=== PATIENT | female | born 1970 | race Caucasian/White ===

== ENCOUNTER 2024-08-06 14:26 | Inpatient (IN) | payer MEDICAID ==
[~2024-08-06] VITALS: Ht 152.4 cm; Wt 91.3 kg
[~2024-08-06 14:26] MED LIST: AMOX875T4 PO; IBUP-1456 PO; TOBR0.3S OP
--- NOTE | 2024-08-06 14:37 | ED.PDOC ---
HPI Comments 53 y/o , with PMHx of HTN and HLD presents to the ED for CC of palpitations. Patient states, that she has been experiencing palpitations onset, x3days ago. Patient reports, associated symptoms of fatigue, sleeping up to 19 hours within a day which has now been consistent for months. Patient endorses, seeing her PCP and being newly diagnosed with diabetes. Upon arrival to the ED, patient's blood sugar read at 352. Patient denies chest pain, shortness of breath, fever, chil ls, or nausea. No other symptoms or modifying factors present at this time. Time Seen by MD: 14:45 Reviewed Notes: Nurses Notes, Medications, Allergies Allergies: Coded Allergies: Ampicillin (Verified Allergy, Unknown, 03/25/22) Sulfa Antibiotics (Verified Allergy, Unknown, 03/25/22) Home Meds Active Scripts Ibuprofen (Ibuprofen) 800 Mg Tab, 1 TAB PO TID, #30 TAB Prov:АННА GARDNER 03/25/22 Tobramycin Sulfate (TOBREX) 0.3 % Henny, 0.3 % OP QID, #5 ML Prov:АННА GARDNER 03/25/22 Amoxicillin & Pot Clavulanate (Amoxicillin/Potassium Cla) 875 Mg Tab, 1 TAB PO BID, #20 TAB Prov:АННА GARDNER 03/25/22 Information Source: Patient Mode of Arrival: Wheelchair Severity: Moderate Timing: Months Duration: Since onset Prehospital treatment: None Onset: At Rest Cardiac Risk Factors: Diabetes PE Risk Factors: None History of: None Modifying Factors: Nothing Associated Signs and Symptoms: Palpitations Past Medical History PAST MEDICAL HISTORY: Arthritis, DM, HTN Surgical History: Denies all surgeries LABEL REWINDER History: No Pertinent LABEL REWINDER History Family History Family History: Reviewed,noncontributory to illness Social History Smoker: Non-Smoker Alcohol: Denies ETOH Use Drugs: Denies Drug Use Lives In: Home Constitutional: reports: fatigue, weakness; denies: chills, diaphoresis, fever, malaise, sweats, others EENTM: denies: blurred vision, double vision, ear bleeding, ear discharge, ear drainage, ear pain, ear ringing, eye pain, eye redness, hearing loss, mouth pain, mouth swelling, nasal discharge, nose bleeding, nose congestion, nose pain, photophobia, tearing, throat pain, throat swelling, voice changes, others Respiratory: denies: cough, hemoptysis, orthopnea, SOB at rest, shortness of breath, SOB with excertion, stridor, wheezing, others Cardiovascular: reports: palpitations; denies: chest pain, dizzy spells, diaphoresis, Dyspnea on exertion, edema, irregular heart beat, left arm pain, lightheadedness, PND, syncope, others Gastrointestinal: denies: abdomen distended, abdominal pain, blood streaked bowels, constipated, diarrhea, dysphagia, difficulty swallowing, hematemesis, melena, nausea, poor appetite, poor fluid intake, rectal bleeding, rectal pain, vomiting, others Genitourinary: denies: abnormal vagina bleeding, burning, dyspareunia, dysuria, flank pain, frequency, hematuria, incontinence, pain, , vagina discharge, urgency, others Neurological: reports: numbness; denies: dizziness, fainting, headache, left sided numbness, left sided weakness, paresthesia, pre-existing deficit, right sided numbness, right sided weakness, seizure, speech problems, tingling, tremors, weakness, others Musculoskeletal: denies: back pain, gout, joint pain, joint swelling, muscle pain, muscle stiffness, neck pain, others Integumetry: denies: bruises, change in color, change in hair/nails, dryness, laceration, lesions, lumps, rash, wounds, others Allergic/Immunocompromised: denies: Difficulty Healing, Frequent Infections, Hives, Itching, others Hematologic/Lymphatic: denies: anemia, blood clots, easy bleeding, easy bruising, swollen glands, others Endocrine: denies: excessive hunger, excessive sweating, excessive thirst, excessive urination, flushing, intolerance to cold, intolerance to heat, unexplained weight gain, unexplained weight loss, others Psychiatric: denies: anxiety, bipolar disorder, depression, hopeless, panic disorder, schizophrenia, sleepless, suicidal, others All Other Systems: Reviewed and Negative Physical Exam General Appearance: Moderate Distress HEENT: Normal ENT Inspection, Pharynx Normal, TMs Normal Neck: Full Range of Motion, Non-Tender, Normal, Normal Inspection Respiratory: Chest Non-Tender, Lungs Clear, No Accessory Muscle Use, No Respiratory Distress, Normal Breath Sounds Cardiovascular: No Edema, No JVD, No Murmur, No Gallop, Normal Peripheral Pulses, Regular Rate/Rhythm Breast Exam: Deferred Gastrointestinal: No Organomegaly, Non Tender, No Pulsatile Mass, Normal Bowel Sounds, Soft Genitalia: Deferred Pelvic: Deferred Rectal: Deferred Extremities: No calf tenderness, Normal capillary refill, Normal inspection, Normal range of motion, Non-tender, No pedal edema Musculoskeletal : Apperance: Normal Neurologic: Alert, car refinisher II-XII nml as Tested, No Motor Deficits, Normal Affect, Normal Mood, No Sensory Deficits Cerebellar Function: Normal Reflexes: Normal Skin: Dry, Normal Color, Warm Lymphatic: No Adenopathy Was a procedure done? Was a procedure done?: No CP Differential Dx Differential Diagnosis: Sinus Tachycardia X-Ray, Labs, Meds, VS Vital Signs Date Time Temp Pulse Resp B/P (MAP) Pulse Ox O2 Delivery O2 Flow Rate FiO2 08/06/24 16:19 99.3 95 18 155/77 (103) 96 99.3 08/06/24 14:34 106 08/06/24 14:26 98.2 100 18 169/85 (113) 96 98.2 Lab Test 08/06/24 15:20 08/06/24 14:39 08/06/24 14:34 Range/Units Troponin I High Sensitivity 4 3 L </=34 ng/L POC Glucose 315 H 70-106 mg/dl White Blood Count 9.2 4.4-10.8 10^3/uL Red Blood Count 5.26 H 4.0-5.20 10^6/uL Hemoglobin 15.8 12.2-16.2 g/dL Hematocrit 46.7 H 36.0-46.0 % Mean Corpuscular Volume 88.7 80.0-100.0 fL Mean Corpuscular Hemoglobin 30.1 28.0-32.0 pg Mean Corpuscular Hemoglobin Concent 33.9 32.0-36.0 g/dL Red Cell Distribution Width 12.9 11.8-14.3 % Platelet Count 215 140-450 10^3/uL Mean Platelet Volume 8.7 6.9-10.8 fL Neutrophils (%) (Auto) 46.4 37.0-80.0 % Lymphocytes (%) (Auto) 45.8 10.0-50.0 % Monocytes (%) (Auto) 6.1 0.0-12.0 % Eosinophils (%) (Auto) 1.0 0.0-7.0 % Basophils (%) (Auto) 0.7 0.0-2.0 % Neutrophils # (Auto) 4.3 1.6-8.6 10 ^3/uL Lymphocytes # (Auto) 4.2 0.4-5.4 10 ^3/uL Monocytes # (Auto) 0.6 0-1.3 10 ^3/uL Eosinophils # (Auto) 0.1 0-0.8 10 ^3/uL Basophils # (Auto) 0.1 0-0.2 10 ^3/uL Nucleated Red Blood Cells 0.0 % Sodium Level 139 136-145 mmol/L Potassium Level 4.4 3.5-5.1 mmol/L Chloride Level 105 98-107 mmol/L Carbon Dioxide Level 24 20-31 mmol/L Anion Gap 10 5-15 Blood Urea Nitrogen 14 9-23 mg/dL Creatinine 0.70 0.550-1.02 mg/dL Glomerular Filtration Rate Calc 102 >90 mL/min BUN/Creatinine Ratio 20.0 10.0-20.0 Serum Glucose 316 H 74-106 mg/dL Calcium Level 9.4 8.7-10.4 mg/dL Magnesium Level 1.8 1.6-2.6 mg/dL IV Hep-Lock was established The CBC is within normal limits The chemistry panel shows hyperglycemia at 318 The troponin level x2 is within normal range The patient is being admitted at this time We feel that the patient needs to be seen by the physics tutor The patient understands and agrees with the management. Images Reviewed?: Images reviewed and evaluated by me Time of 1ST Reevaluation: 15:15 Reevaluation 1ST: Unchanged Patient Education/Counseling: Diagnosis, Treatment, Prognosis Family Education/Counseling: No Family Present Departure 1 Departure Time of Disposition: 17:30 Impression: Primary Impression: Acute chest pain Additional Impression: Palpitations Disposition: ADMITTED INPATIENT Admit to: Tele Condition: Fair Critical Care Note Critical Care Time?: Yes (45 min-critical care time only) Stability Stability form required: Yes Unstable for transfer: Telemetry monitoring (Telemetry monitoring required), ED Physician Assesment (Clinical assesment) Heart Score Heart Score: Heart Score Response (Comments) Value History Moderate Suspicious 1 EKG Repolarization Disturb 1 Age 45-64 1 Risk Factors 1 or 2 risk factors 1 Troponin Normal limit 0 Total 4 I personally scribed for SANCHEZ ULRICH MD ([email or web address]) on 08/06/24 at 14:37. Electronically submitted by Eva Coffey ([email or web address]). I personally scribed for SANCHEZ ULRICH MD ([email or web address]) on 08/06/24 at 15:01. Electronically submitted by Eva Coffey ([email or web address]). I personally scribed for SANCHEZ ULRICH MD ([email or web address]) on 08/06/24 at 16:03. Electronically submitted by Eva Coffey ([facility]). SANCHEZ ULRICH MD August 06, 2024 14:37
[2024-08-06 15:16] LABS: Basophils # (auto) 0.1 10 ^3/uL (0-0.2); Basophils % (auto) 0.7 % (0.0-2.0); Eosinophils # (auto) 0.1 10 ^3/uL (0-0.8); Hematocrit 46.7 % (36.0-46.0); Hemoglobin 15.8 g/dL (12.2-16.2); Lymphocytes # (auto) 4.2 10 ^3/uL (0.4-5.4); Lymphocytes % (auto) 45.8 % (10.0-50.0); Mean Corpuscular Hemoglobin 30.1 pg (28.0-32.0); Mean Corpuscular Hgb Conc. 33.9 g/dL (32.0-36.0); Mean Corpuscular Volume 88.7 fL (80.0-100.0); Monocytes # (auto) 0.6 10 ^3/uL (0-1.3); Monocytes % (auto) 6.1 % (0.0-12.0); Neutrophils # (auto) 4.3 10 ^3/uL (1.6-8.6); Neutrophils % (auto) 46.4 % (37.0-80.0); Platelet Count (auto) 215 10^3/uL (140-450); Red Blood Cells 5.26 10^6/uL (4.0-5.20); Red Cell Distribution Width 12.9 % (11.8-14.3); White Blood Cell 9.2 10^3/uL (4.4-10.8)
[2024-08-06 15:27] LABS: Chloride 105 mmol/L (98-107); Potassium 4.4 mmol/L (3.5-5.1); Sodium 139 mmol/L (136-145)
[2024-08-06 15:28] LABS: Anion Gap 10 (5-15); Calcium 9.4 mg/dL (8.7-10.4); Carbon Dioxide 24 mmol/L (20-31)
[2024-08-06 15:33] LABS: Blood Urea Nitrogen 14 mg/dL (9-23)
[2024-08-06 15:34] LABS: Glucose 316 mg/dL (74-106); Magnesium 1.8 mg/dL (1.6-2.6)
--- NOTE | 2024-08-06 16:27 | DVH ---
CHEST RADIOGRAPH Indication: cp Technique: Single frontal view of the chest was obtained Comparison: None FINDINGS: Lines and Tubes: None Lungs: No focal consolidation. Mild interstitial prominence most likely from overlying structures. Pleura: No effusion. No pneumothorax. Cardiomediastinal contours: Unremarkable Bones: No acute osseous abnormality. IMPRESSION: No evidence of acute cardiopulmonary disease
[2024-08-06] MEDS ORDERED: DEXTROSE (50%) 50ML SYRG IV PRN (21:00)
[2024-08-06 21:09] LABS: Urine Bacteria FEW /hpf (None Seen); Urine Blood TRACE /uL (Negative); Urine Clarity Clear (Clear); Urine Color Yellow (Yellow); Urine Protein, UAD Negative (Negative); Urine Specific Gravity 1.027 (1.001-1.035); Urine Squamous Epithelial Cell FEW /hpf (<5); Urine Urobilinogen Normal (Negative); Urine WBC 9 /HPF (0-5); Urine pH 5.5 (5.0-9.0)
[2024-08-06 21:27] LABS: Amphetamine Screen, Urine Neg (NEGATIVE); Barbiturate Scree,Urine Neg (NEGATIVE); Benzodiazephine Screen, Urine Neg (NEGATIVE); Cannabinoid Screen, Urine Pos (NEGATIVE); Cocaine Screen, Urine Neg (NEGATIVE); Opiate Scree,Urine Neg (NEGATIVE); Phencyclidine Screen, Urine Neg (NEGATIVE)
--- NOTE | 2024-08-06 21:45 | DVHHP2 ---
History of Present Illness Reason for Visit: hyperglycemia History of Present Illness 53-year-old female with a history of hypertension, hyperlipidemia, and recent diagnosis of diabetes mellitus, presenting to the ED with 3 days of palpitations. She reports associated symptoms of fatigue and hypersomnolence, sleeping up to 19 hours per day. No chest pain, shortness of breath, fever, chills, or nausea. She said that she was planning to see her PCP due to recent hba1c of 10.8. On arrival, her POC glucose was 352 mg/dL. Allergies: Ampicillin Sulfa antibiotics Past Medical History: Hypertension Hyperlipidemia Arthritis Diabetes mellitus, newly diagnosed Past Surgical History: Denies any surgeries Gynecologic History: No pertinent history Family History: Noncontributory Social History: Denies smoking, alcohol CBD use ROS: Positive for palpitations, fatigue, and excessive sleepiness. Denies fever, chest pain, dyspnea, GI or symptoms otherwise. EKG: NSR Review of Systems Allergies: Coded Allergies: Ampicillin (Verified Allergy, Unknown, 03/25/22) Sulfa Antibiotics (Verified Allergy, Unknown, 03/25/22) Medications Current Medications Medications Dose Ordered Sig/Shelia Route Start Time Stop Time Status Last Admin Dose Admin Acetaminophen 650 mg Q6HP PRN PO 08/06/24 21:00 Enoxaparin Sodium 40 mg DAILY SC 08/07/24 10:00 Losartan Potassium 50 mg DAILY PO 08/07/24 10:00 Hydrochlorothiazide 25 mg DAILY PO 08/07/24 10:00 Diagnostic Test (Pha) 1 strip ACHS 08/06/24 22:00 Insulin Human Regular ACHS SC 08/06/24 22:00 Dextrose 50 ml UD PRN IV 08/06/24 21:00 Exam Vital Signs Vital Signs Date Time Temp Pulse Resp B/P (MAP) Pulse Ox O2 Delivery O2 Flow Rate FiO2 08/06/24 18:25 98.8 97 16 163/84 (110) 96 98.8 Exam General: Alert and oriented x3, NAD HEENT: Normocephalic, atraumatic Neck: No JVD, no lymphadenopathy Lungs: Clear to auscultation Cardiovascular: RRR, no murmurs Abdomen: Soft, non-tender, no organomegaly Extremities: No edema Neuro: No focal deficits Skin: Intact, no rashes Labs/Xrays Labs Test 08/06/24 15:20 08/06/24 14:43 08/06/24 14:39 08/06/24 14:34 Range/Units Troponin I High Sensitivity 4 </=34 ng/L Urine Color Yellow Yellow Urine Clarity Clear Clear Urine pH 5.5 5.0-9.0 Urine Specific [place] 1.027 1.001-1.035 Urine Protein Negative Negative Urine Ketones Negative Negative Urine Blood Trace H Negative /uL Urine Nitrite Negative Negative Urine Bilirubin Negative Negative Urine Urobilinogen Normal Negative mg/dL Urine Leukocyte Esterase 1+ Negative /uL Urine RBC 5 0 - 4 /hpf Urine Microscopic WBC 9 H 0-5 /HPF Urine Squamous Epithelial Cells Few <5 /hpf Urine Bacteria Few H None Seen /hpf Urine Glucose 4+ H Normal mg/dL Urine Opiates Screen Neg NEGATIVE Urine Fentanyl Screen Neg NEGATIVE Urine Barbiturates Screen Neg NEGATIVE Urine Phencyclidine Screen Neg NEGATIVE Urine Amphetamines Screen Neg NEGATIVE Urine Benzodiazepines Screen Neg NEGATIVE Urine Cocaine Screen Neg NEGATIVE Urine Cannabinoids Screen Pos NEGATIVE POC Glucose 315 H 70-106 mg/dl White Blood Count 9.2 4.4-10.8 10^3/uL Red Blood Count 5.26 H 4.0-5.20 10^6/uL Hemoglobin 15.8 12.2-16.2 g/dL Hematocrit 46.7 H 36.0-46.0 % Mean Corpuscular Volume 88.7 80.0-100.0 fL Mean Corpuscular Hemoglobin 30.1 28.0-32.0 pg Mean Corpuscular Hemoglobin Concent 33.9 32.0-36.0 g/dL Red Cell Distribution Width 12.9 11.8-14.3 % Platelet Count 215 140-450 10^3/uL Mean Platelet Volume 8.7 6.9-10.8 fL Neutrophils (%) (Auto) 46.4 37.0-80.0 % Lymphocytes (%) (Auto) 45.8 10.0-50.0 % Monocytes (%) (Auto) 6.1 0.0-12.0 % Eosinophils (%) (Auto) 1.0 0.0-7.0 % Basophils (%) (Auto) 0.7 0.0-2.0 % Neutrophils # (Auto) 4.3 1.6-8.6 10 ^3/uL Lymphocytes # (Auto) 4.2 0.4-5.4 10 ^3/uL Monocytes # (Auto) 0.6 0-1.3 10 ^3/uL Eosinophils # (Auto) 0.1 0-0.8 10 ^3/uL Basophils # (Auto) 0.1 0-0.2 10 ^3/uL Nucleated Red Blood Cells 0.0 % Sodium Level 139 136-145 mmol/L Potassium Level 4.4 3.5-5.1 mmol/L Chloride Level 105 98-107 mmol/L Carbon Dioxide Level 24 20-31 mmol/L Anion Gap 10 5-15 Blood Urea Nitrogen 14 9-23 mg/dL Creatinine 0.70 0.550-1.02 mg/dL Glomerular Filtration Rate Calc 102 >90 mL/min BUN/Creatinine Ratio 20.0 10.0-20.0 Serum Glucose 316 H 74-106 mg/dL Calcium Level 9.4 8.7-10.4 mg/dL Magnesium Level 1.8 1.6-2.6 mg/dL Assessment/Plan Assessment/Plan #Uncontrolled newly diagnosed DM type 2 #Hypertensive crisis #UTI? #CBD use Admit Med/surg Diabetic diet Mild ISS Losartan 50 mg PO HCTZ 25 mg PO Ceftriaxone IV Normal head CT Nifedipine PO once Case discussed with Dr Olguin Full code Plan discussed with: Patient, Other (rn) My Orders Orders - LUZ SHIRLEY Procedure Category Date Status Time Admit ADMIT 08/06/24 Transmitted 20:54 Code Status CODE 08/06/24 Transmitted 20:54 Vital Signs MOUNA 08/06/24 In Process 20:54 Review Orders With MOUNA 08/06/24 In Process Adm. 20:54 Consistent DIET 08/07/24 Transmitted Carb(Ccho)Diabetes Breakfast Acetaminophen Tablet PHA 08/06/24 In Process (Tylenol Tablet) 21:00 Notify Of Changes MOUNA 08/06/24 In Process From Base 20:54 Advance Directive MOUNA 08/06/24 In Process 20:54 Patient Condition ORDERS 08/06/24 Transmitted 20:54 Allergies MOUNA 08/06/24 In Process 20:54 Enoxaparin Sodium PHA 08/07/24 In Process (Lovenox) 10:[address] 08/06/24 Taken 20:56 Losartan Tablet PHA 08/07/24 In Process (Cozaar Tablet) 10:00 Hydrochlorothiazide PHA 08/07/24 In Process Tablet (Hydrochlorot 10:00 Glucose Blood PHA 08/06/24 In Process (Accu-Chek Comfort 22:00 Insulin R (Human) PHA 08/06/24 In Process (Insulin R) 22:00 Dextrose 50% Syringe PHA 08/06/24 In Process 21:00 Date of Service: August 06, 2024 Billing Provider: KATRINA OLGUIN MD Common Visit Codes: 46671-[id number] INP/OBS CARE (HIGH) Secondary Visit Codes: 78789-[id number] CARE PLAN 30 MINUTES LUZ SHIRLEY RESIDENT August 06, 2024 21:45
--- NOTE | 2024-08-06 21:54 | DVH ---
CT BRAIN WITHOUT CONTRAST HISTORY: hypertensive urgency TECHNIQUE: Axial scans were obtained from the skull base through the vertex without contrast. Sagitta l and coronal reformats were generated. One or more of the following radiation dose reduction techniq ues were used for this examination: automated exposure control, adjustment of the mA and/or kV accord ing to patient size, use of iterative reconstruction technique. COMPARISON: None FINDINGS: No acute intracranial hemorrhage or evidence of large vessel territorial infarction identified at thi s time. No midline shift. The basilar cisterns are patent. Valentine-white differentiation appears relati vely preserved. The visualized paranasal sinuses and mastoid air cells are clear. No grossly displaced calvarial abno rmalities identified. IMPRESSION: No acute intracranial findings.
[2024-08-07] MEDS: cefTRIAXone 1GM/50ML D5W 50 ML IV SCH (01:15)
[2024-08-07] MEDS: ACCU-CHEK COMFORT CURVE STRIP VI SCH (01:15)
[2024-08-07] MEDS: InsuLIN REG 1unit/0.01ml Soln (100units/ml) SC SCH (01:15)
[2024-08-07 01:17] VITALS: PULSE 90; RESP 16; O2SAT 97
[2024-08-07] MEDS: NIFEdipine ER 30 MG TAB PO ONE (03:54)
[2024-08-07 06:48] LABS: Basophils # (auto) 0.1 10 ^3/uL (0-0.2); Basophils % (auto) 0.6 % (0.0-2.0); Eosinophils # (auto) 0.1 10 ^3/uL (0-0.8); Eosinophils % (auto) 1.1 % (0.0-7.0); Hematocrit 47.6 % (36.0-46.0); Hemoglobin 16.3 g/dL (12.2-16.2); Lymphocytes # (auto) 4.1 10 ^3/uL (0.4-5.4); Lymphocytes % (auto) 45.4 % (10.0-50.0); Mean Corpuscular Hemoglobin 30.1 pg (28.0-32.0); Mean Corpuscular Hgb Conc. 34.3 g/dL (32.0-36.0); Mean Corpuscular Volume 87.7 fL (80.0-100.0); Monocytes # (auto) 0.4 10 ^3/uL (0-1.3); Monocytes % (auto) 4.9 % (0.0-12.0); Neutrophils # (auto) 4.4 10 ^3/uL (1.6-8.6); Nucleated Red Blood Cells % 0.3 %; Platelet Count (auto) 242 10^3/uL (140-450); Red Blood Cells 5.43 10^6/uL (4.0-5.20); Red Cell Distribution Width 13.1 % (11.8-14.3); White Blood Cell 9.1 10^3/uL (4.4-10.8)
[2024-08-07 07:34] LABS: Alkaline Phosphatase 104 U/L (46-116); Calcium 9.6 mg/dL (8.7-10.4); Carbon Dioxide 23 mmol/L (20-31); Chloride 103 mmol/L (98-107)
[2024-08-07 07:35] LABS: Albumin 4.5 g/dL (3.2-4.8); Anion Gap 11 (5-15); Aspartate Aminotransferase 32 U/L (13-40); BUN/Creatinine Ratio 15.2 (10.0-20.0); Bilirubin, Total 0.7 mg/dL (0.2-1.0); Blood Urea Nitrogen 12 mg/dL (9-23); Sodium 137 mmol/L (136-145); Total Protein 7.3 g/dL (5.7-8.2)
[2024-08-07 07:39] LABS: Alanine Aminotransferase 58 U/L (7-40); Glucose 273 mg/dL (74-106)
[2024-08-07 08:30] LABS: Cholesterol 286 mg/dL (< 200); HDL Cholesterol 38 mg/dL (40-59); Triglycerides 553 mg/dL (< 150)
--- NOTE | 2024-08-07 08:57 | ECG ---
[facility] Test Date: 2024-08-06 Test Time: 14:34:41 Pat Name: YANA STILL Department: ER Room: 0298 Gender: F [employer]: YVROSE : 1970 Requested By: SANCHEZ ULRICH Order Number: [id number] Reading MD: Raymundo Lay Measurements Intervals [place] Rate: 106 P: 80 NV: 178 QRS: 0 QRSD: 86 T: 85 QT: 353 QTc: 469 Interpretive Statements Sinus tachycardia Right atrial enlargement Nonspecific T abnrm, anterolateral leads Baseline wander in lead(s) V6 Electronically Signed On 08-08-2024 12:46:26 PDT by Raymundo Lay Please click the below link to view image of tracing.
[2024-08-07] MEDS: LOSARTAN POTASSIUM 50 MG TAB PO SCH (11:28)
[2024-08-07] MEDS: ENOXAPARIN SOD 40 MG/0.4 ML SYRINGE SC SCH (11:29)
[2024-08-07] MEDS: hydroCHLOROthiazide 25 MG TAB PO SCH (11:29)
[2024-08-07] MEDS: ACETAMINOPHEN 325 MG TAB PO PRN (15:55)
--- NOTE | 2024-08-07 17:06 | DVHPNRES ---
Progress Note Date Seen: August 07, 2024 Resident Creating Document: MIMI RIVERA RESIDENT Has the PT tested + for MRSA If YES, has PT been informed?: No Medical Necessity Reason Pt with a Central, PICC or Fol: No Medical Necessity Reason History of Present Illness 53-year-old female with a history of hypertension, hyperlipidemia, and recent diagnosis of diabetes mellitus, presenting to the ED with 3 days of palpitations. She reports associated symptoms of fatigue and hypersomnolence, sleeping up to 19 hours per day. No chest pain, shortness of breath, fever, chills, or nausea. She said that she was planning to see her PCP due to recent hba1c of 10.8. On arrival, her POC glucose was 352 mg/dL. Allergies: Ampicillin, Sulfa antibiotics Past Medical History: Hypertension, Hyperlipidemia, Arthritis, Diabetes mellitus, newly diagnosed Past Surgical History: Denies any surgeries Gynecologic History: No pertinent history Family History:Noncontributory Social History: Lives at home, with children. Denies smoking, alcohol, but uses CBD Pn: 08/07/2024 Patient is a 53-year-old female with hypertension, hyperlipidemia and prediabetes comes to the clinic because of 1 polydipsia polyuria and hypersomnia. Patient, she has realize that this past couple of weeks she has been sleeping a lot. She will take her children to school sleep she would have a good night red but by the time she gets her children to screen back to sleep until she goes out big them and so she finds his a very exhausted. Patient also complained of constantly feeling dry in her mouth needing to always drink something to hydrate herself. She called her PCP did lab work and she found that she is diabetic. She came to the Ed to be evaluated. Blood sugar was 316 and A1c of 10.4. Head CT was negative No acute intracranial findings CXR evidence of acute cardiopulmonary disease. Urinalysis was positive for leukocyte esterase urine WBC and bacteria. Urine culture sent and patient is started treatment with ceftriaxone. Subjective Review of Systems Constitutional: Denies fever no chills, feeling of malaise, fatigues HEENT: Denies headache, ear pain, ear discharges, conjunctivitis, nasal discharge throat pain Cardiovascular: Denies chest pain, palpitation, orthopnea, PND, or pedal edema Respiratory: Denies shortness of breath, cough cough, sputum production, hemoptysis, GI: Denies abdominal pain, nausea, vomiting, diarrhea, hematemesis, hematochezia, polydipsia : Denies frequency, urgency, hematuria, polyuria Endocrine: Denies unintentional weight gain or weight loss, feeling of hot flashes, Sharif: Denies easy bruising, bleeding disorders, epistaxis Musculoskeletal: Denies joint pains, muscle aches Psych: No evidence of depression, christopher, suicidal ideation Objective vital signs Vital Sign Date Time Temp Pulse Resp B/P (MAP) Pulse Ox O2 Delivery O2 Flow Rate FiO2 08/07/24 11:29 158/80 08/07/24 11:26 97.9 95 15 97 97.9 08/07/24 09:04 Room Air* 0 21 medications Current Medications Medications Dose Ordered Sig/Shelia Route Start Time Stop Time Status Last Admin Dose Admin Acetaminophen 650 mg Q6HP PRN PO 08/06/24 21:00 08/07/24 15:55 650 MG Enoxaparin Sodium 40 mg DAILY SC 08/07/24 10:00 Losartan Potassium 50 mg DAILY PO 08/07/24 10:00 08/07/24 11:28 50 MG Hydrochlorothiazide 25 mg DAILY PO 08/07/24 10:00 08/07/24 11:29 25 MG Diagnostic Test (Pha) 1 strip ACHS 08/06/24 22:00 08/07/24 11:41 1 STRIP Insulin Human Regular ACHS SC 08/06/24 22:00 08/07/24 11:51 6 UNITS Dextrose 50 ml UD PRN IV 08/06/24 21:00 Ceftriaxone Sodium 50 ml @ 100 mls/hr DAILY@0100 IV 08/07/24 00:15 08/07/24 01:15 100 MLS/HR Examination General Appearance: Alert, Oriented X3, Cooperative, No acute distress HEENT: Atraumatic, PERRLA, EOMI, Mucous membrane moist/pink Respiratory: Clear to auscultation, Normal air movement Cardiovascular: Regular rate, Normal S1, Normal S2, No murmurs, no chest wall tenderness Abdominal: NO distention, no tenderness, bowel sounds present, no scars noted Extremities: No clubbing, No cyanosis, No edema, Normal pulses, No tenderness/swelling Skin: No rashes, No breakdown, No significant lesion Neuro: Normal gait, Normal speech, Strength at 5/5 X4 ext, Normal tone, Sensation intact, Cranial nerves 3-12 NL, Reflexes 2+ Psych/Mental Status: Mental status NL, Mood NL laboratory and microbiology Laboratory Tests 08/07/24 06:09 Test 08/07/24 06:09 Range/Units Serum Glucose 273 H 74-106 mg/dL Problem List/Assessment/Plan Problem List/Assessment/Plan Assessment/Plan Newly diagnosed type 2 diabetes with hyperglycemia --> A1c 10.4 --> Lantus 10 UNIT, mild sliding scale Hypertensive Urgency --> Continue home medication --> monitor for improvement UTI? 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 SHARMA Plan discussed with: Patient MIMI RIVERA RESIDENT August 07, 2024 17:06
[2024-08-07] MEDS: INSULIN LANTUS (GLARGINE) 1 /0.01ml (100units/ml) SC ONE (19:04)
[2024-08-07 21:00] VITALS: BP 140/79; PULSE 95; RESP 20; TEMP 97.9; O2SAT 96
[2024-08-08] VITALS: BP 135/76; PULSE 94; RESP 18; TEMP 98.4; O2SAT 98
[2024-08-08 01:00] VITALS: PULSE 94; RESP 18; O2SAT 98
[2024-08-08 05:00] VITALS: BP 157/86; PULSE 97; RESP 19; TEMP 98.4; O2SAT 98
[2024-08-08 07:46] LABS: Anion Gap 9 (5-15); Basophils # (auto) 0 10 ^3/uL (0-0.2); Basophils % (auto) 0.5 % (0.0-2.0); Calcium 9.7 mg/dL (8.7-10.4); Carbon Dioxide 24 mmol/L (20-31); Chloride 103 mmol/L (98-107); Eosinophils # (auto) 0.1 10 ^3/uL (0-0.8); Eosinophils % (auto) 0.9 % (0.0-7.0); Hematocrit 47.1 % (36.0-46.0); Hemoglobin 16.2 g/dL (12.2-16.2); Lymphocytes # (auto) 3.3 10 ^3/uL (0.4-5.4); Lymphocytes % (auto) 35.5 % (10.0-50.0); Mean Corpuscular Hgb Conc. 34.4 g/dL (32.0-36.0); Mean Corpuscular Volume 87.2 fL (80.0-100.0); Monocytes # (auto) 0.6 10 ^3/uL (0-1.3); Monocytes % (auto) 6.3 % (0.0-12.0); Neutrophils # (auto) 5.2 10 ^3/uL (1.6-8.6); Neutrophils % (auto) 56.8 % (37.0-80.0); Nucleated Red Blood Cells % 0.1 %; Platelet Count (auto) 244 10^3/uL (140-450); Potassium 3.8 mmol/L (3.5-5.1); Red Cell Distribution Width 12.8 % (11.8-14.3); Sodium 136 mmol/L (136-145); White Blood Cell 9.2 10^3/uL (4.4-10.8)
[2024-08-08 07:52] LABS: BUN/Creatinine Ratio 15.9 (10.0-20.0); Blood Urea Nitrogen 10 mg/dL (9-23)
[2024-08-08 07:56] LABS: Glucose 234 mg/dL (74-106)
[2024-08-08 09:00] VITALS: BP 134/76; PULSE 90; RESP 18; TEMP 98.1; O2SAT 97
[2024-08-08] MEDS: INSULIN LANTUS (GLARGINE) 1 /0.01ml (100units/ml) SC SCH (10:17)
[2024-08-08 13:00] VITALS: BP_SYST 138; BP_SYST 161; BP_DIAS 73; BP_DIAS 81; PULSE 100; PULSE 78; RESP 17; RESP 18; TEMP 98; O2SAT 95; O2SAT 98
[2024-08-08] MEDS ORDERED: LOSA-534 PO (16:32)
[2024-08-08] MEDS ORDERED: LANC1MIS SUBCUT (16:32)
[2024-08-08] MEDS ORDERED: INSUINJ37 SC (16:32)
[2024-08-08] MEDS ORDERED: ALCO70PA28 SC (16:32)
[2024-08-08] MEDS ORDERED: IBUP-1455 PO (16:32)
[2024-08-08] MEDS ORDERED: HYDR25TA5 PO (16:32)
[2024-08-08] MEDS ORDERED: GLUC-224 SUBCUT (16:32)
[2024-08-08] MEDS ORDERED: BLOO-169 SC (16:32)
[2024-08-08] MEDS ORDERED: CEPH250C PO (16:51)
--- NOTE | 2024-08-08 16:53 | DVHDSRES ---
Discharge Summary Date of Admission Resident Creating Document: MIMI RIVERA RESIDENT August 06, 2024 at 20:54 Date of Discharge: August 08, 2024 Admitting Diagnosis Extreme fatigue Headache Labs/Diagnostic Data: PATIENT: YANA STILL ACCT: [id number] UNIT: [id number] : 1970 LOC: OVERFLOW ROOM / BED: 1027-ER / A AGE / SEX: 53 / F ADM STATUS: ADM IN SERVICE 53 ORDERING PHYSICIAN: LUZ SHIRLEY PROCEDURE(s): HWOCT - HEAD WITHOUT CONTRAST REASON: hypertensive urgency ORDER NUMBER(s): [id number], ACCESSION NUMBER(s): [id number] CT BRAIN WITHOUT CONTRAST HISTORY: hypertensive urgency TECHNIQUE: Axial scans were obtained from the skull base through the vertex without contrast. Sagittal and coronal reformats were generated. One or more of the following radiation dose reduction techniques were used for this examination: automated exposure control, adjustment of the mA and/or kV according to patient size, use of iterative reconstruction technique. COMPARISON: None FINDINGS: No acute intracranial hemorrhage or evidence of large vessel territorial infarction identified at this time. No midline shift. The basilar cisterns are patent. Valentine-white differentiation appears relatively preserved. The visualized paranasal sinuses and mastoid air cells are clear. No grossly displaced calvarial abnormalities identified. IMPRESSION: No acute intracranial findings. ATED BY: KEAGAN DUNLAP MD DICTATED DATE/TIME: 08/06/242151 PATIENT: YANA STILL ACCT: [id number] UNIT: [id number] : 1970 LOC: ER ROOM / BED: / AGE / SEX: 53 / F ADM STATUS: REG ER SERVICE 1504 ORDERING PHYSICIAN: SANCHEZ ULRICH MD PROCEDURE(s): CXRP - CHEST PORTABLE REASON: cp ORDER NUMBER(s): [id number], ACCESSION NUMBER(s): [id number] CHEST RADIOGRAPH Indication: cp Technique: Single frontal view of the chest was obtained Comparison: None FINDINGS: Lines and Tubes: None Lungs: No focal consolidation. Mild interstitial prominence most likely from overlying structures. Pleura: No effusion. No pneumothorax. Cardiomediastinal contours: Unremarkable Bones: No acute osseous abnormality. IMPRESSION: No evidence of acute cardiopulmonary disease ATED BY: KAREN REDDY DO DICTATED DATE/TIME: 08/06/24 0683 Laboratory Results Test 08/08/24 11:51 08/08/24 06:52 08/07/24 06:09 08/06/24 15:20 POC Glucose 281 mg/dl (70-106) White Blood Count 9.2 10^3/uL (4.4-10.8) Red Blood Count 5.40 10^6/uL (4.0-5.20) Hemoglobin 16.2 g/dL (12.2-16.2) Hematocrit 47.1 % (36.0-46.0) Mean Corpuscular Volume 87.2 fL (80.0-100.0) Mean Corpuscular Hemoglobin 30.0 pg (28.0-32.0) Mean Corpuscular Hemoglobin Concent 34.4 g/dL (32.0-36.0) Red Cell Distribution Width 12.8 % (11.8-14.3) Platelet Count 244 10^3/uL (140-450) Mean Platelet Volume 8.7 fL (6.9-10.8) Neutrophils (%) (Auto) 56.8 % (37.0-80.0) Lymphocytes (%) (Auto) 35.5 % (10.0-50.0) Monocytes (%) (Auto) 6.3 % (0.0-12.0) Eosinophils (%) (Auto) 0.9 % (0.0-7.0) Basophils (%) (Auto) 0.5 % (0.0-2.0) Neutrophils # (Auto) 5.2 10 ^3/uL (1.6-8.6) Lymphocytes # (Auto) 3.3 10 ^3/uL (0.4-5.4) Monocytes # (Auto) 0.6 10 ^3/uL (0-1.3) Eosinophils # (Auto) 0.1 10 ^3/uL (0-0.8) Basophils # (Auto) 0 10 ^3/uL (0-0.2) Nucleated Red Blood Cells 0.1 % Sodium Level 136 mmol/L (136-145) Potassium Level 3.8 mmol/L (3.5-5.1) Chloride Level 103 mmol/L (98-107) Carbon Dioxide Level 24 mmol/L (20-31) Anion Gap 9 (5-15) Blood Urea Nitrogen 10 mg/dL (9-23) Creatinine 0.63 mg/dL (0.550-1.02) Glomerular Filtration Rate Calc 105 mL/min (>90) BUN/Creatinine Ratio 15.9 (10.0-20.0) Serum Glucose 234 mg/dL (74-106) Calcium Level 9.7 mg/dL (8.7-10.4) Hemoglobin A1c 10.4 % A1C (<5.7) Total Bilirubin 0.7 mg/dL (0.2-1.0) Aspartate Amino Transferase (AST) 32 U/L (13-40) Alanine Aminotransferase (ALT) 58 U/L (7-40) Alkaline Phosphatase 104 U/L (46-116) Total Protein 7.3 g/dL (5.7-8.2) Albumin 4.5 g/dL (3.2-4.8) Triglycerides Level 553 mg/dL (< 150) Cholesterol Level 286 mg/dL (< 200) LDL Cholesterol mg/dL (< 100) HDL Cholesterol 38 mg/dL (40-59) Vitamin B12 Level 881 pg/mL (211-911) Vitamin D 25-Hydroxy 28.3 ng/mL (30.0-100) Thyroid Stimulating Hormone (TSH) 3.78 uIU/mL (0.55-4.78) Troponin I High Sensitivity 4 ng/L (</=34) Test 08/06/24 14:43 08/06/24 14:34 Urine Color Yellow (Yellow) Urine Clarity Clear (Clear) Urine pH 5.5 (5.0-9.0) Urine Specific [place] 1.027 (1.001-1.035) Urine Protein Negative (Negative) Urine Ketones Negative (Negative) Urine Blood Trace /uL (Negative) Urine Nitrite Negative (Negative) Urine Bilirubin Negative (Negative) Urine Urobilinogen Normal mg/dL (Negative) Urine Leukocyte Esterase 1+ /uL (Negative) Urine RBC 5 /hpf (0 - 4) Urine Microscopic WBC 9 /HPF (0-5) Urine Squamous Epithelial Cells Few /hpf (<5) Urine Bacteria Few /hpf (None Seen) Urine Glucose 4+ mg/dL (Normal) Urine Opiates Screen Neg (NEGATIVE) Urine Fentanyl Screen Neg (NEGATIVE) Urine Barbiturates Screen Neg (NEGATIVE) Urine Phencyclidine Screen Neg (NEGATIVE) Urine Amphetamines Screen Neg (NEGATIVE) Urine Benzodiazepines Screen Neg (NEGATIVE) Urine Cocaine Screen Neg (NEGATIVE) Urine Cannabinoids Screen Pos (NEGATIVE) Magnesium Level 1.8 mg/dL (1.6-2.6) Other Laboratory Tests 08/08/24 06:52 Brief Hx & Hospital Course: History of Present Illness 53-year-old female with a history of hypertension, hyperlipidemia, and recent diagnosis of diabetes mellitus, presenting to the ED with 3 days of palpitations. She reports associated symptoms of fatigue and hypersomnolence, sleeping up to 19 hours per day. No chest pain, shortness of breath, fever, chills, or nausea. She said that she was planning to see her PCP due to recent hba1c of 10.8. On arrival, her POC glucose was 352 mg/dL. Allergies: Ampicillin, Sulfa antibiotics Past Medical History: Hypertension, Hyperlipidemia, Arthritis, Diabetes mellitus, newly diagnosed Past Surgical History: Denies any surgeries Gynecologic History: No pertinent history Family History:Noncontributory Social History: Lives at home, with children. Denies smoking, alcohol, but uses CBD Brief Hospital course Patient is a 53-year-old female with hypertension, hyperlipidemia and prediabetes comes to the ED because polydipsia, polyuria and hypersomnia. Patient realized that in the past couple of weeks, she has been sleeping a lot. She will take her children to school come home and will just sleep. Even though she was sleeping a lot, she does not feel rested. Patient also complained of constantly feeling dry in her mouth needing to always drink something to hydrate herself. She called her PCP ( Dr. Mathew) did lab work and she found that that her A1C is in the diabetic. Patient came to the ED to evaluated. Initial vitals bp: 169/85, HR: 100,106, blood sugar was 316 and A1c of 10.4. Head CT was negative for any acute intracranial findings. CXR evidence of acute cardiopulmonary disease. Urinalysis was positive for leukocyte esterase urine WBC and bacteria. Urine culture sent and patient is started treatment with ceftriaxone. Patient also started on lantus 10 unit. This morning, her BP is improved. Blood sugar is slight improved. Patient's blood sugar can be managed outpatient. Will discharge home with kits for daily blood glucose check, lantus and follow up appointment at the discharge clinic. Review of Systems Constitutional: Denies fever no chills no feeling of malaise HEENT: Denies headache, ear pain, ear discharges, conjunctivitis, nasal discharge throat pain Cardiovascular: Denies chest pain, palpitation, orthopnea, PND, or pedal edema Respiratory: Denies shortness of breath, cough cough, sputum production, hemoptysis, GI: Denies abdominal pain, nausea, vomiting, diarrhea, hematemesis, hematochezia, : Denies frequency, urgency, hematuria, Endocrine: Denies unintentional weight gain or weight loss, feeling of hot flashes, Sharif: Denies easy bruising, bleeding disorders, epistaxis Musculoskeletal: Denies joint pains, muscle aches Psych: No evidence of depression, christopher, suicidal ideation Examination General Appearance: Alert, Oriented X3, Cooperative, No acute distress HEENT: Atraumatic, PERRLA, EOMI, Mucous membrane moist/pink Respiratory: Clear to auscultation, Normal air movement Cardiovascular: Regular rate, Normal S1, Normal S2, No murmurs, no chest wall tenderness Abdominal: NO distention, no tenderness, bowel sounds present, no scars noted Extremities: No clubbing, No cyanosis, No edema, Normal pulses, No tenderness/swelling Skin: No rashes, No breakdown, No significant lesion Neuro: Normal gait, Normal speech, Strength at 5/5 X4 ext, Normal tone, Sensation intact, Cranial nerves 3-12 NL, Reflexes 2+ Psych/Mental Status: Mental status NL, Mood NL Diagnoses Newly diagnosed type 2 diabetes with hyperglycemia Hypertensive Urgency UTI Obesity grade 2, BMI 39.3 CBD use Discharge plan Diabeties education given Glucometer and supplies sent Take lantus 13unit at night Keflex 500 mg bid 5 days Metformin 500mg bid Continue blood pressure medications ( losartan 50 mg daily, hydrochlorothiazide 25 mg daily) Follow up at the discharge clinic in 7 days follow up with your PCP ( Dr. Mathew) for continuity of care Discharge plan discussed with Dr. Sarah Condition at Discharge: Good Final Diagnosis/Problems List Newly diagnosed type 2 diabetes with hyperglycemia Hypertensive Urgency UTI Obesity grade 2, BMI 39.3 CBD use Discharge Disposition: Home Discharge Instruct/Medications Diet: Cardiac 2g Na,low cholest Diet comment: Low carbohydrate diet low sodium diet Activity: No Restrictions, As Tolerated Follow Up/Referral: 7 days follow up at the discharge clinic Medications: Lantus 13 unit at night Metformin 500 mg bid Jardiance 10mg daily (please do not fill if it is financially impossible) Discharge Statement: "Patient was advised to return to the ER or call 911 if any headaches, dizziness, shortness of breath, chest pain, abdominal pain, bleeding, fevers, or worsening of medical condition. Patient was counseled about treatment plan, medications, possible side effects, patient�verbalized understanding. All questions were answered to the best of my ability. This discharge took greater then 30 minutes in planning, reviewing documentation, counseling the patient, and discussing with other team members." ASSESSMENT ASSESSMENT Assessment Newly diagnosed type 2 diabetes with hyperglycemia Hypertensive Urgency UTI Obesity grade 2, BMI 39.3 CBD use MIMI RIVERA RESIDENT August 08, 2024 16:53
[2024-08-08 16:57] VITALS: BP 134/76; PULSE 90; RESP 18; TEMP 98.1; O2SAT 97
[2024-08-08] MEDS: IBUPROFEN 800 MG TAB PO PRN (17:32)
[2024-08-09] MEDS ORDERED: METF-489 PO (13:16)
== END 2024-08-08 18:13 | disposition home or self-care (01) | DRG 420 ==
LOC: ER 14:32 → OVERFLOW 20:54 → WEST WING 08-07 23:59
PROVIDERS: ADMIT Student in an Organized Health Care Education/Training Program; ATTEND Emergency Medicine
DX: E11.65 Type 2 diabetes mellitus with hyperglycemia (principal); E66.812 Obesity, class 2; I16.0 Hypertensive urgency; I10 Essential (primary) hypertension; N39.0 Urinary tract infection, site not specified; E78.5 Hyperlipidemia, unspecified; Z88.0 Allergy status to penicillin; Z88.2 Allergy status to sulfonamides; Z79.1 Long term (current) use of non-steroidal anti-inflammatories (NSAID); Z79.899 Other long term (current) drug therapy; Z68.39 Body mass index [BMI] 39.0-39.9, adult
CPT/HCPCS: 36415; 70450; 71045; 80048; 80053; 80061; 80307; 81001; 82306; 82607; 82962; 83036; 83735; 84443; 84484; 85025; 87086; 93005; 99291; G0378; J1815